=== PATIENT | male | born 1990 | race Two or more races ===

== ENCOUNTER 2016-05-28 17:46 | Emergency (ER) | payer SELFPAY ==
[2016-05-28 18:21] VITALS: TEMP 99.4; BMI 30.7
[2016-05-28 18:49] LABS: CA OXALATE 2+; LEUKOCYTES/URINE NEG (NEGATIVE); NITRITE/URINE NEG (NEGATIVE); URINE OCCULT BLOOD NEG (NEG/TRACE); WBC/URINE 0-2 (0-2)
[2016-05-28 19:07] LABS: AUTOMATED BASOPHIL 0.7 % (0-2); AUTOMATED EOSINOPHIL 1.4 % (0-5); AUTOMATED LYMPH 34.1 % (17-44); AUTOMATED MONOCYTE 8.9 % (3-10); AUTOMATED NEUTROPHIL 54.9 % (45-76); MPV 8.6 fL (7.4-10.4)
[2016-05-28 19:15] LABS: BLOOD UREA NITROGEN 12 MG/DL (9-20); CALCIUM 9.6 MG/DL (8.4-10.2); CALCULATED OSMOLALITY 270 MOs/Kg (270-290); CHLORIDE 102 mEq/L (98-107); GLUCOSE 85 MG/DL (70-99); SODIUM LEVEL 141 mEq/L (137-146); TOTAL PROTEIN 8.6 G/DL (6.3-8.2)
[2016-05-28] MEDS ORDERED: FAMOTIDINE 20 MG TAB PO ONE (20:10)
--- NOTE | 2016-05-28 20:15 | EDPRACDOC ---
- General Information Chief Complaint: Nausea,Vomiting,Diarrhea Stated Complaint: DIARRHEA Time Seen by Provider: 05/28/16 20:04 Information Source: Patient Mode Of Arrival: Car Home Medications: Home Medications Oxycodone HCl/Acetaminophen [Percocet 5-325 mg Tablet] 1 - 2 tab PO Q4H PRN #30 tab 03/03/14 Famotidine [Pepcid] 20 mg PO DAILY #30 tablet 05/28/16 Allergies/Adverse Reactions: Allergies Allergy/AdvReac Type Severity Reaction Status Date / Time ibuprofen [From Motrin] Allergy Intermediate Rash-Genera Verified 03/03/14 02:20 lized - History of Present Illness Onset: one week HPI: PT SAID THAT HE HAS EPIGASTRIC ABDOMINAL PAIN AND DIARRHEA FOR A FEW MONTHS. HE DOES ADMIT TO DAILY HEAVY DRINKING. HE DID START TAKING A PROBIOTICS YESTERDAY. Pain Location: Reports: Epigastric Pain Context: Reports: Spontaneous Pain Severity: Mild Pain Quality: Reports: Sharp Pain Radiation: Reports: No Radiation Modifying Factors: improves with: Nothing Associated Signs & Symptoms: Reports: Nausea, Diarrhea Oral Intake: Decreased Urinary Output: Normal ED Past Medical History - History Reviewed No Past Medical History: Yes Patient has no past medical history - Patient Medical History Psychological History: Denies: Depression Surgical History: Reports: No Significant History - Social Medical History Smoking Status: Never smoker Social History: Reports: Alcohol Use ETOH: Abuse Substance Abuse: None Lives In: Home EDM Review of Systems - Review of Systems ROS Negative Except as Marked: Yes All systems reviewed and were negative except as marked Gastrointestinal: Pain - Physical Exam Constitutional: Alert (Awake), No apparent distress Oriented to: Time, Person, Place Last recorded Vital Signs: Last Vital Signs Temp 99.4 F 05/28/16 18:18 Pulse 77 05/28/16 18:18 Resp 20 05/28/16 18:18 BP 158/89 05/28/16 18:18 Pulse Ox 96 05/28/16 18:18 Oxygen Pulse Oxygen Saturation 96 O2 Device Room Air Oxygen Flow Rate Fraction of Inspired Oxygen ( FIO2) - HEENT Head: Normal ( normocephalic) Eye Exam: Normal (PERRL, EOMI, Sclera white) Oropharynx: Normal (Pharynx:Moist without exudate,Gums-no swelling) ENT EAC: Normal TMJ: Normal Nose: No Symptoms Reported (septum midline) Neck: Normal (FROM, trachea at midline) - Respiratory/Cardiovascular Respiratory: Normal - CTA (BBS clear to auscultation without adventitious sounds ) Cardiovascular: Normal (RRR without murmur, gallop or rub) - GI Auscultation: Normal (NABS) Palpation: Normal (Soft,No rebound or guarding, non distended) Tenderness: Mild, Epigastric Banks's Sign: Negative - Musculoskeletal Back: Normal (Non-Tender) Extremities: Normal (Normal tone, Pulses 2+ No cyanosis or edema, FROM) - Integumentary Skin: Normal, Warm, Dry Lymphatics: Normal (no adenopathy) - Neurologic Memory Impaired: Normal Motor Function: Normal (Normal tone, Pulses 2+ No cyanosis or edema, FROM) Cranial Nerve: Normal (CN II-X11 intact sensation, strength 5/5) Cerebellar: Normal Mood Description: Normal Thought: Coherent Perception: Normal - Results 05/28/16 18:21 05/28/16 18:21 WBC 9.3 xk/uL (3.8-10.8) 05/28/16 18:21 RBC 5.52 xM/uL (4.70-6.10) 05/28/16 18:21 Hgb 16.4 g/dL (14.0-18.0) 05/28/16 18:21 Hct 48.7 % (42-52) 05/28/16 18:21 MCV 88 fL (80-94) 05/28/16 18:21 MCH 29.7 pg (27-32) 05/28/16 18:21 MCHC 33.7 g/dl (33-36) 05/28/16 18:21 RDW 12.9 % (11.5-14.5) 05/28/16 18:21 Plt Count 199 xk/uL (130-400) 05/28/16 18:21 MPV 8.6 fL (7.4-10.4) 05/28/16 18:21 Neut % (Auto) 54.9 % (45-76) 05/28/16 18:21 Lymph % (Auto) 34.1 % (17-44) 05/28/16 18:21 [place] % (Auto) 8.9 % (3-10) 05/28/16 18:21 Eos % (Auto) 1.4 % (0-5) 05/28/16 18:21 Baso % (Auto) 0.7 % (0-2) 05/28/16 18:21 Absolute Neuts (auto) 5.02 xk/uL (1.7-8.2) 05/28/16 18:21 Absolute Lymphs (auto) 3.16 xk/uL (0.65-4.75) 05/28/16 18:21 Sodium 141 mEq/L (137-146) 05/28/16 18:21 Potassium 4.1 mEq/L (3.5-5.1) 05/28/16 18:21 Chloride 102 mEq/L (98-107) 05/28/16 18:21 Carbon Dioxide 26 mMOL/L (22-33) 05/28/16 18:21 Anion Gap 17 mEq/L (8-16) H 05/28/16 18:21 BUN 12 MG/DL (9-20) 05/28/16 18:21 Creatinine 0.90 MG/DL (0.66-1.25) 05/28/16 18:21 Estimated GFR (MDRD) > 60 mL/min (>=60) 05/28/16 18:21 Glucose 85 MG/DL (70-99) 05/28/16 18:21 Calculated Osmolality 270 MOs/Kg (270-290) 05/28/16 18:21 Calcium 9.6 MG/DL (8.4-10.2) 05/28/16 18:21 Total Bilirubin 1.2 MG/DL (0.2-1.3) 05/28/16 18:21 AST 36 IU/L (17-59) 05/28/16 18:21 ALT 61 IU/L (21-72) 05/28/16 18:21 Alkaline Phosphatase 60 IU/L (38-126) 05/28/16 18:21 Total Protein 8.6 G/DL (6.3-8.2) H 05/28/16 18:21 Albumin 4.9 G/DL (3.5-5.0) 05/28/16 18:21 Lipase 110 U/L (23-300) 05/28/16 18:21 Urine Color Dark yellow 05/28/16 18:21 Urine Clarity Clear 05/28/16 18:21 Urine pH 6.0 (5.0-8.0) 05/28/16 18:21 Ur Specific [place] 1.030 (1.003-1.035) 05/28/16 18:21 Urine Protein 1+ (NEG/TRACE) H 05/28/16 18:21 Urine Glucose (UA) Neg (NEGATIVE) 05/28/16 18:21 Urine Ketones Neg (NEGATIVE) 05/28/16 18:21 Urine Occult Blood Neg (NEG/TRACE) 05/28/16 18:21 Urine Nitrite Neg (NEGATIVE) 05/28/16 18:21 Urine Bilirubin Neg (NEGATIVE) 05/28/16 18:21 Urine Urobilinogen 2 MG/DL (0-1) H 05/28/16 18:21 Ur Leukocyte Esterase Neg (NEGATIVE) 05/28/16 18:21 Urine RBC 2-5 (0-2) H 05/28/16 18:21 Urine WBC 0-2 (0-2) 05/28/16 18:21 Calcium Oxalate Crystal 2+ 05/28/16 18:21 Urine Bacteria Few (NEG/FEW) 05/28/16 18:21 Urine Mucus Mod (NEG/OCC) H 05/28/16 18:21 Lab Results 05/28/16 05/28/16 05/28/16 18:21 18:21 18:21 WBC 9.3 RBC 5.52 Hgb 16.4 Hct 48.7 MCV 88 MCH 29.7 MCHC 33.7 RDW 12.9 Plt Count 199 MPV 8.6 Neut % (Auto) 54.9 Lymph % (Auto) 34.1 [place] % (Auto) 8.9 Eos % (Auto) 1.4 Baso % (Auto) 0.7 Absolute Neuts (auto) 5.02 Absolute Lymphs (auto) 3.16 Sodium 141 Potassium 4.1 Chloride 102 Carbon Dioxide 26 Anion Gap 17 H BUN 12 Creatinine 0.90 Estimated GFR (MDRD) > 60 Glucose 85 Calculated Osmolality 270 Calcium 9.6 Total Bilirubin 1.2 AST 36 ALT 61 Alkaline Phosphatase 60 Total Protein 8.6 H Albumin 4.9 Lipase 110 Urine Color Dark yellow Urine Clarity Clear Urine pH 6.0 Ur Specific [place] 1.030 Urine Protein 1+ H Urine Glucose (UA) Neg Urine Ketones Neg Urine Occult Blood Neg Urine Nitrite Neg Urine Bilirubin Neg Urine Urobilinogen 2 H Ur Leukocyte Esterase Neg Urine RBC 2-5 H Urine WBC 0-2 Calcium Oxalate Crystal 2+ Urine Bacteria Few Urine Mucus Mod H Decision Time to Discharge: 20:10 - Departure Yes I personally saw and evaluated the patient. Disposition: Home Condition: Fair Final Diagnosis: Nausea and vomiting, Dehydration, Epigastric abdominal pain Instructions: Abdominal Pain (ED) Education/Counseling Given To: Patient Education/Counseling Given Regarding: Diagnosis, Treatment, Follow Up Referrals: None,No Provider [Primary Care Provider] - One Week Willard Beasley MD [Staff Physician] - One Week Prescriptions: Famotidine [Pepcid] 20 mg PO DAILY #30 tablet Additional Instructions: STOP DRINKING ETOH. CONTINUE PROBIOTICS.
[2016-05-28 20:36] VITALS: BP 130/78; PULSE 68
== END 2016-05-28 20:35 | disposition home or self-care (01) ==
LOC: ED 17:46
DX: R11.2 Nausea with vomiting, unspecified (principal); E86.0 Dehydration; R10.13 Epigastric pain; F10.10 Alcohol abuse, uncomplicated
CPT/HCPCS: 80053; 81001; 83690; 85025; 99283; J3490; 36415